=== PATIENT | male | born 1990 | race Caucasian/White ===

== ENCOUNTER 2021-11-13 12:32 | Emergency (ER) | payer MEDICARE, OTHER ==
[2021-11-13] MEDS ORDERED: MYCOSTATIN100000 UTS PO (14:02)
[2021-11-13 14:30] LABS: HEMOGLOBIN 15.6 gm/dl (14.0-17.5); RED BLOOD COUNT 4.88 M/UL (4.20-5.50); WHITE BLOOD COUNT 8.6 K/UL (4.5-11.0)
[2021-11-13 15:08] LABS: BUN/CREATININE RATIO 18 (0-10)
== END 2021-11-13 15:41 | disposition home or self-care (01) ==
LOC: ER1 12:32
PROVIDERS: Emergency Medicine
DX: B37.0 Candidal stomatitis (principal)
CPT/HCPCS: 80053; 81001; 83605; 85025; 87040; 99283